=== PATIENT | male | born 2000 | race Hispanic/Latino ===

== ENCOUNTER 2018-05-13 21:03 | Emergency (ER) | payer SELFPAY ==
[~2018-05-13] VITALS: Ht 170.2 cm; Wt 90.7 kg
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
[2018-05-13 22:54] VITALS: BP 153/78
== END 2018-05-13 23:02 | disposition home or self-care (01) ==
LOC: ER 21:03
DX: S60.511A Abrasion of right hand, initial encounter (principal); S60.512A Abrasion of left hand, initial encounter; S20.212A Contusion of left front wall of thorax, initial encounter; V43.52XA Car driver injured in collision with other type car in traffic accident, initial encounter; Y92.488 Other paved roadways as the place of occurrence of the external cause; J45.909 Unspecified asthma, uncomplicated
CPT/HCPCS: 71046; 99283

== ENCOUNTER 2018-07-08 19:13 | Emergency (ER) | payer SELFPAY ==
[~2018-07-08] VITALS: Ht 170.2 cm; Wt 90.7 kg
--- NOTE | 2018-07-08 20:47 | Diagnostic Imaging Report ---
EXAMINATION: Head CT without contrast. HISTORY:Headache and facial numbness. COMPARISON:None. TECHNIQUE: Multidetector axial images were obtained from the foramen magnum to the vertex without contrast. The images were reconstructed using brain and bone algorithms. Thin section brain images were reformatted into coronal and sagittal planes. Dose modulation, iterative reconstruction, and/or weight based adjustment of the mA/kV was utilized to reduce the radiation dose to as low as reasonably achievable. Intravenous contrast: None IMAGE QUALITY: Acceptable. FINDINGS: Skull/scalp: No lytic or blastic. lesions. No surgical changes. Parenchyma: No abnormal density. No acute hemorrhage, mass or acute major vascular territorial infarct. Arteries: No density suggestive of thrombosis. Dural sinuses: No abnormal density suggestive of thrombosis. Ventricles: No hydrocephalus or displacement. Extra-axial spaces: No abnormal density. Brain volume: Normal for age. Craniocervical junction: No mass, Chiari malformation, or basilar invagination. Sella: No mass. Paranasal/mastoid sinuses: Imaged portions unremarkable. IMPRESSION: No intracranial abnormality. Signed by: Dr. Rosaura Pina M.D. on 07/08/2018 8:44 PM
== END 2018-07-08 22:21 | disposition home or self-care (01) ==
LOC: ER 19:13
DX: G44.89 Other headache syndrome (principal)
CPT/HCPCS: 70450; 99282

== ENCOUNTER 2019-01-14 18:18 | Emergency (ER) | payer SELFPAY ==
[~2019-01-14] VITALS: Ht 170.2 cm; Wt 90.7 kg
[2019-01-14] MEDS ORDERED: DONNATAL/LIDOCAINE/MAALOX 30 ML SUSP PO NR (18:45)
--- NOTE | 2019-01-14 18:54 | NUR ---
PATIENT CAME FROM RADIOLOGY, PLACED IN ROOM #8
--- NOTE | 2019-01-14 19:23 | Diagnostic Imaging Report ---
EXAMINATION: PA and lateral views of the chest. COMPARISON: None CLINICAL HISTORY: Chest pain DISCUSSION: Lines/tubes: None. Lungs: The lungs are well inflated and clear. No pneumonia or pulmonary edema. Pleura: No pleural effusion or pneumothorax. Heart and mediastinum: The cardiomediastinal silhouette is normal. Bones and soft tissues: No acute bony abnormalities. IMPRESSION: No acute cardiopulmonary abnormalities. Signed by: Dr. Saleem Julio M.D. on 01/14/2019 7:20 PM
== END 2019-01-14 19:46 | disposition home or self-care (01) ==
LOC: ER 18:18
DX: R10.13 Epigastric pain (principal); R11.2 Nausea with vomiting, unspecified; J45.909 Unspecified asthma, uncomplicated
CPT/HCPCS: 71046; 93005; 99282

== ENCOUNTER 2019-06-29 20:13 | Emergency (ER) | payer SELFPAY ==
[~2019-06-29] VITALS: Ht 170.2 cm; Wt 90.7 kg
[2019-06-29 20:46] LABS: BILIRUBIN,URINE NEGATIVE (NEGATIVE); CLARITY,URINE SL CLOUDY (CLEAR); COLOR,URINE YELLOW (YELLOW); KETONES,URINE NEGATIVE (NEGATIVE); LEUKOCYTE ESTERASE ,URINE NEGATIVE (NEGATIVE); NITRITE,URINE NEGATIVE (NEGATIVE); PROTEIN,URINE DIPSTICK NEGATIVE (NEGATIVE); URINE UROBILINOGEN 0.2 mg/dL (0.2 - 1)
[2019-06-29 20:47] LABS: AMORPHOUS SEDIMENT,URINE MODERATE (FEW); EPITHELIAL CELLS,URINE RARE /LPF
--- NOTE | 2019-06-29 23:05 | Diagnostic Imaging Report ---
Exam: Abdominal film Clinical History: Back and right lower quadrant pain for a few months Comparison: None. DISCUSSION: Frontal view of the abdomen shows a nonobstructive bowel gas pattern with mild amount of retained stool.There are no dilated, air-filled loops of bowel. There are no abnormal calcifications. No free air under the hemidiaphragms. No acute bone abnormality. IMPRESSION: 1. Nonobstructive bowel gas pattern. The staff physician below has personally reviewed this exam on the date of dictation. Signed by: Dr. Mike Drake M.D. on 06/29/2019 11:02 PM
== END 2019-06-29 22:10 | disposition home or self-care (01) ==
LOC: ER 20:13
DX: R10.11 Right upper quadrant pain (principal); R10.31 Right lower quadrant pain; K59.00 Constipation, unspecified; J45.909 Unspecified asthma, uncomplicated
CPT/HCPCS: 74019; 81001; 99282

== ENCOUNTER 2020-12-31 20:20 | Emergency (ER) | payer SELFPAY ==
[~2020-12-31] VITALS: Ht 170.2 cm; Wt 90.7 kg
== END 2020-12-31 20:50 | disposition home or self-care (01) ==
LOC: ER 20:28
DX: R20.2 Paresthesia of skin (principal); M54.12 Radiculopathy, cervical region
CPT/HCPCS: 99282

== ENCOUNTER 2025-06-10 08:03 | Emergency (ER) | payer SELFPAY ==
[~2025-06-10] VITALS: Ht 172.7 cm; Wt 100.4 kg
[2025-06-10] MEDS: LACTATED RINGER'S 1,000 ML INJ ONE (09:00)
[2025-06-10] MEDS: ONDANSETRON HCL INJ 2MG/ML 2ML 2 MG/ML VIAL IV ONE (09:01)
[2025-06-10] MEDS: DIPHENHYDRAMINE HCL INJ 50 MG/ML VIAL IV ONE (09:01)
[2025-06-10] MEDS: DEXAMETHASONE SOD PHOS INJ 4 MG/ML SDV IV ONE (09:01)
[2025-06-10] MEDS: KETOROLAC TROMETHAMINE 30 MG/ML VIAL IV STA (09:01)
[2025-06-10] MEDS ORDERED: ONDANSETRON ODT4 MG PO (09:54)
[2025-06-10] MEDS ORDERED: DIPHENHYDRAMINE25 M2 PO (09:54)
[2025-06-10] MEDS ORDERED: BUTALB-ACETAMI1 EAC2 PO (09:54)
[2025-06-10] MEDS ORDERED: MOUNJARO5 MG/0.5 M (10:00)
[2025-06-10] MEDS ORDERED: MOUNJARO2.5 MG/0.5 (10:00)
[2025-06-10 10:12] VITALS: PULSE 69; RESP 18; TEMP 98.1; O2SAT 99
== END 2025-06-10 10:12 | disposition home or self-care (01) ==
LOC: FSED 08:08
DX: R51.9 Headache, unspecified (principal); R11.2 Nausea with vomiting, unspecified; R19.7 Diarrhea, unspecified; Z11.52 Encounter for screening for COVID-19
CPT/HCPCS: 0223U; 70450; 80053; 81003; 85025; 87400; 96374; 96375; 99284; J1100; J1200; J1885; J2405; J7121